=== PATIENT | male | born 1965 | race Caucasian/White ===

== ENCOUNTER 2018-04-28 11:02 | Emergency (ER) | payer BC ==
[2018-04-28] MEDS ORDERED: IPRATROPIUM BROM 0.5MG/2.5ML ONE (11:48)
[2018-04-28] MEDS ORDERED: METHYLPREDNISOLONE 125 MG INJ ONE (11:48)
[2018-04-28] MEDS ORDERED: ALBUTEROL 2.5 MG/3 ML NEB SOL ONE ×2 (11:48→13:14)
[2018-04-28] MEDS ORDERED: NA CHLORIDE 0.9% 1,000 ML ONE (11:49)
[2018-04-28 12:06] LABS: Absolute Lymphocytes (CBC) 1.7 K/uL (0.7-4.9); Absolute Monocytes 0.8 K/uL (0.1-1.3); Absolute Neutrophil 5.9 K/uL (1.8-8.0); Basophils % 0.7 % (0-1.3); Eosinophils % 7.1 % (0-4.4); Hematocrit 47.2 % (39.6-49.0); Lymphocytes % 18.7 % (15.3-44.8); MPV 8.9 fL (7.6-11.3); Monocytes % 8.8 % (3.3-12.3); RBC Red Blood Cell Count 5.21 M/uL (4.33-5.43)
[2018-04-28 12:09] LABS: Protime INR 1.02
--- NOTE | 2018-04-28 12:10 | RAD REPORT ---
EXAM DESCRIPTION: RAD - Chest Single View - 04/28/2018 12:05 pm CLINICAL HISTORY: COUGH Chest pain. COMPARISON: No comparisons FINDINGS: Portable technique limits examination quality. The lungs are grossly clear. The heart is normal in size. No displaced fractures. IMPRESSION: No acute intrathoracic process suspected.
[2018-04-28 12:27] LABS: ALT/SGPT 47 U/L (12-78); AST/SGOT 38 U/L (15-37); Albumin 4.4 g/dL (3.4-5.0); Alkaline Phosphatase 71 U/L (45-117); BUN Blood Urea Nitrogen 15 mg/dL (7-18); Bicarbonate 32 mmol/L (21-32); Bilirubin Direct 0.1 mg/dL (0-0.2); Bilirubin Total 0.5 mg/dL (0.2-1.0); Glucose Level 118 mg/dL (74-106); Lipase 160 U/L (73-393); Magnesium 2.7 mg/dL (1.8-2.4); NT PRO-BNP 28 pg/mL (<125); Potassium 3.4 mmol/L (3.5-5.1); Protein, Total 8.1 g/dL (6.4-8.2); Sodium Level 137 mmol/L (136-145); Troponin (Emerg Dept Use Only) < 0.02 ng/mL (0.0-0.045)
--- NOTE | 2018-04-28 13:05 | EDPHYS ---
Physician Documentation [facility] Name: Gold James Age: 53 yrs Sex: Male : 1965 Arrival Date: 04/28/2018 Time: 11:05 Bed 17 Private MD: out of town, doctor ED Physician Robi Edwards HPI: 04/28 12:59 This 53 yrs old Male presents to ER via Ambulatory with complaints of ruddy Breathing Difficulty. 12:59 The patient has shortness of breath at rest, with light activity. Onset: The ruddy symptoms/episode began/occurred 5 day(s) ago. Duration: The symptoms are continuous, and are steadily getting worse. The patient's shortness of breath has no apparent modifying factors, is aggravated by coughing, is alleviated by inhaler, nebulizer treatment, sitting up. Associated signs and symptoms: The patient has no apparent associated signs or symptoms. Severity of symptoms: At their worst the symptoms were mild in the emergency department the symptoms are unchanged. The patient has not experienced similar symptoms in the past. Historical: - Allergies: 11:15 No Known Allergies; aj - Home Meds: 11:15 ProAir HFA 90 mcg/actuation inhalation HFAA 1 puff every 4 hours [Active]; azithromycin aj 1 gram Oral pack 1 packet [Active]; Hydrochlorothiazide Oral [Active]; - PMHx: 11:15 Hypertension; aj - PSHx: 11:15 cataract; Hernia repair; aj - Immunization history:: Adult Immunizations up to date. - Social history:: Smoking status: Patient/guardian denies using tobacco. - Ebola Screening: : Patient negative for fever greater than or equal to 101.5 degrees Fahrenheit, and additional compatible Ebola Virus Disease symptoms Patient denies exposure to infectious person Patient denies travel to an Ebola-affected area in the 21 days before illness onset No symptoms or risks identified at this time. ROS: 13:00 Constitutional: Negative for fever, chills, and weight loss, Eyes: Negative for injury, ruddy pain, redness, and discharge, ENT: Negative for injury, pain, and discharge, Neck: Negative for injury, pain, and swelling, Cardiovascular: Negative for chest pain, palpitations, and edema, Abdomen/GI: Negative for abdominal pain, nausea, vomiting, diarrhea, and constipation, Back: Negative for injury and pain, : Negative for injury, bleeding, discharge, and swelling, MS/Extremity: Negative for injury and deformity, Skin: Negative for injury, rash, and discoloration, Neuro: Negative for headache, weakness, numbness, tingling, and seizure, Psych: Negative for depression, anxiety, suicide ideation, homicidal ideation, and hallucinations, Allergy/Immunology: Negative for hives, rash, and allergies, Endocrine: Negative for neck swelling, polydipsia, polyuria, polyphagia, and marked weight changes, Hematologic/Lymphatic: Negative for swollen nodes, abnormal bleeding, and unusual bruising. 13:00 Respiratory: Positive for cough, shortness of breath, wheezing, expiratory. Exam: 13:00 Constitutional: This is a well developed, well nourished patient who is awake, alert, ruddy and in no acute distress. Head/Face: Normocephalic, atraumatic. Eyes: Pupils equal round and reactive to light, extra-ocular motions intact. Lids and lashes normal. Conjunctiva and sclera are non-icteric and not injected. Cornea within normal limits. Periorbital areas with no swelling, redness, or edema. ENT: Nares patent. No nasal discharge, no septal abnormalities noted. Tympanic membranes are normal and external auditory canals are clear. Oropharynx with no redness, swelling, or masses, exudates, or evidence of obstruction, uvula midline. Mucous membranes moist. Neck: Trachea midline, no thyromegaly or masses palpated, and no cervical lymphadenopathy. Supple, full range of motion without nuchal rigidity, or vertebral point tenderness. No Meningismus. Chest/axilla: Normal chest wall appearance and motion. Nontender with no deformity. No lesions are appreciated. Cardiovascular: Regular rate and rhythm with a normal S1 and S2. No gallops, murmurs, or rubs. Normal PMI, no JVD. No pulse deficits. Abdomen/GI: Soft, non-tender, with normal bowel sounds. No distension or tympany. No guarding or rebound. No evidence of tenderness throughout. Back: No spinal tenderness. No costovertebral tenderness. Full range of motion. Male : Normal genitalia with no discharge or lesions. Skin: Warm, dry with normal turgor. Normal color with no rashes, no lesions, and no evidence of cellulitis. MS/ Extremity: Pulses equal, no cyanosis. Neurovascular intact. Full, normal range of motion. Neuro: Awake and alert, GCS 15, oriented to person, place, time, and situation. Cranial nerves II-XII grossly intact. Motor strength 5/5 in all extremities. Sensory grossly intact. Cerebellar exam normal. Normal gait. Psych: Awake, alert, with orientation to person, place and time. Behavior, mood, and affect are within normal limits. 13:00 Respiratory: the patient does not display signs of respiratory distress, Respirations: normal, Breath sounds: rhonchi, wheezing: expiratory Respiratory rate: 20 13:09 Musculoskeletal/extremity: DVT Exam: No signs of deep vein thrombosis. no pain, no ruddy swelling, no tenderness, negative Homans' sign noted on exam, no appreciated bluish discoloration, no erythema, no increased warmth, no trauma, no stasis, no hc state. Vital Signs: 11:15 BP 165 / 107; Pulse 73; Resp 22; Temp 98.2; Pulse Ox 93% on R/A; Weight 90.26 kg; aj Height 5 ft. 8 in. (172.72 cm); 12:22 BP 179 / 98; Pulse 65; Resp 21; Pulse Ox 100% on R/A; Pain 0/10; em 13:30 BP 158 / 98; Pulse 81; Resp 16; Pulse Ox 98% on R/A; em 11:15 Body Mass Index 30.26 (90.26 kg, 172.72 cm) aj MDM: 11:17 Patient medically screened. [facility] 13:02 Data reviewed: vital signs, nurses notes, lab test result(s), radiologic studies. [facility] 04/28 11:35 Order name: Basic Metabolic Panel; Complete Time: 12:55 [facility] 04/28 11:35 Order name: CBC with Diff; Complete Time: 12:55 [facility] 04/28 11:35 Order name: LFT's; Complete Time: 12:55 [facility] 04/28 11:35 Order name: Magnesium; Complete Time: 12:55 [facility] 04/28 11:35 Order name: NT PRO-BNP; Complete Time: 12:55 [facility] 04/28 11:35 Order name: PT-INR; Complete Time: 12:55 [facility] 04/28 11:35 Order name: Troponin (emerg Dept Use Only); Complete Time: 12:55 [facility] 04/28 11:35 Order name: XRAY Chest (1 view); Complete Time: 12:55 [facility] 04/28 11:35 Order name: Blood Culture Adult (2) [facility] 04/28 11:35 Order name: Lipase; Complete Time: 12:55 [facility] 04/28 11:35 Order name: Cardiac monitoring; Complete Time: 12:30 [facility] 04/28 11:35 Order name: EKG - Nurse/Tech; Complete Time: 12:30 [facility] 04/28 11:35 Order name: IV Saline Lock; Complete Time: 12:30 [facility] 04/28 11:35 Order name: Labs collected and sent; Complete Time: 12:30 [facility] 04/28 11:35 Order name: O2 Per Protocol; Complete Time: 12:30 [facility] 04/28 11:35 Order name: O2 Sat Monitoring; Complete Time: 12:30 [facility] 04/28 11:35 Order name: Urine Dipstick-Ancillary (obtain specimen); Complete Time: 11:36 [facility] Administered Medications: 11:48 Drug: Albuterol - atroVENT (3:1) (2.5 mg - 0.5 mg) 3 ml Route: Nebulizer; em 13:00 Follow up: Response: No adverse reaction; Wheezing unchanged em 11:55 Drug: NS 0.9% 1000 ml Route: IV; Rate: 125 ml/hr; Site: right antecubital; ss 13:49 Follow up: IV Status: Completed infusion; IV Intake: 1000ml em 11:55 Drug: SOLU-Medrol 125 mg Route: IVP; Site: right antecubital; ss 12:30 Follow up: Response: No adverse reaction em 13:01 Not Given (Physician Discretion): NS 0.9% 1000 ml IV at 1 bolus Per protocol; 1000 mL em bolus 13:12 Drug: predniSONE 40 mg Route: PO; em 13:49 Follow up: Response: No adverse reaction em 13:12 Drug: Albuterol 5 mg Route: Inhalation; em 13:30 Drug: LevaQUIN 750 mg Route: PO; em 13:49 Follow up: Response: No adverse reaction em Disposition: 04/28/18 13:04 Discharged to Home. Impression: Bronchitis, not specified as acute or chronic, Dyspnea. - Condition is Stable. - Discharge Instructions: Acute Bronchitis, Adult, Hypertension, Upper Respiratory Infection, Adult, Upper Respiratory Infection, Adult, [id number]. - Prescriptions for Levaquin 500 mg Oral Tablet - take 1 tablet by ORAL route once daily for 7 days; 7 tablet. Albuterol Sulfate 2.5 mg /3 mL (0.083 %) Inhalation Solution for Nebulization - inhale 1 unit by NEBULIZATION route every 8 hours As needed; 1 box. Prednisone 20 mg Oral Tablet - take 2 tablet by ORAL route once daily for 5 days; 10 tablet. Albuterol Sulfate 90 mcg/actuation - inhale 1-2 puff by INHALATION route every 4-6 hours; 1 Inhaler. - Medication Reconciliation Form, Thank You Letter, Antibiotic Education, Prescription Opioid Use form. - Follow up: Private Physician; When: 2 - 3 days; Reason: Recheck today's complaints, Continuance of care, Re-evaluation by your physician. Follow up: Paras Jones MD; When: 2 - 3 days; Reason: Recheck today's complaints, Continuance of care, Re-evaluation by your physician. - Problem is new. - Symptoms have improved. Signatures: Dispatcher [employer] Judi Kaye RN RN Robi Scott MD MD cha Munoz, Edgar, [employer]IPAL [employer] Génesis Garrido RN RN ss Corrections: (The following items were deleted from the chart) 13:07 13:04 04/28/2018 13:04 Discharged to Home. Impression: Bronchitis, not specified as ruddy acute or chronic; Dyspnea. Condition is Stable. Forms are Medication Reconciliation Form, Thank You Letter, Antibiotic Education, Prescription Opioid Use. Follow up: Private Physician; When: 2 - 3 days; Reason: Recheck today's complaints, Continuance of care, Re-evaluation by your physician. Problem is new. Symptoms have improved. ruddy 13:51 13:07 04/28/2018 13:04 Discharged to Home. Impression: Bronchitis, not specified as em acute or chronic; Dyspnea. Condition is Stable. Discharge Instructions: Acute Bronchitis, Adult, Hypertension, Upper Respiratory Infection, Adult, Upper Respiratory Infection, Adult, [id number]. Prescriptions for Levaquin 500 mg Oral Tablet - take 1 tablet by ORAL route once daily for 7 days; 7 tablet, Albuterol Sulfate 2.5 mg /3 mL (0.083 %) Inhalation Solution for Nebulization - inhale 1 unit by NEBULIZATION route every 8 hours As needed; 1 box, Prednisone 20 mg Oral Tablet - take 2 tablet by ORAL route once daily for 5 days; 10 tablet, Albuterol Sulfate 90 mcg/actuation - inhale 1-2 puff by INHALATION route every 4-6 hours; 1 Inhaler. and Forms are Medication Reconciliation Form, Thank You Letter, Antibiotic Education, Prescription Opioid Use. Follow up: Private Physician; When: 2 - 3 days; Reason: Recheck today's complaints, Continuance of care, Re-evaluation by your physician. Follow up: Paras Jones; When: 2 - 3 days; Reason: Recheck today's complaints, Continuance of care, Re-evaluation by your physician. Problem is new. Symptoms have improved. ruddy
--- NOTE | 2018-04-28 13:05 | ER ---
Nurse's Notes [facility] Name: Gold James Age: 53 yrs Sex: Male : 1965 Arrival Date: 04/28/2018 Time: 11:05 Bed 17 Private MD: out of town, doctor Diagnosis: Bronchitis, not specified as acute or chronic;Dyspnea Presentation: 04/28 11:12 Presenting complaint: Patient states: SOB and difficulty breathing for 4 days. DX with aj Bronchitis and given steroid shot and Z pack. Transition of care: patient was not received from another setting of care. Onset of symptoms was April 24, 2018. Risk Assessment: Do you want to hurt yourself or someone else? Patient reports no desire to harm self or others. Initial Sepsis Screen: Does the patient meet any 2 criteria? No. Patient's initial sepsis screen is negative. Does the patient have a suspected source of infection? Yes:. Care prior to arrival: None. 11:12 Method Of Arrival: Ambulatory aj 11:12 Acuity: LEA 3 aj Triage Assessment: 11:15 General: Appears in no apparent distress. comfortable, Behavior is calm, cooperative, aj appropriate for age. Pain: Denies pain. Neuro: Level of Consciousness is awake, alert, obeys commands, Oriented to person, place, time, situation, Appropriate for age. Respiratory: Reports shortness of breath cough that is Airway is patent Respiratory effort is even, unlabored, Respiratory pattern is regular, symmetrical, Onset: The symptoms/episode began/occurred gradually, the patient has mild shortness of breath. Derm: Skin is intact, is healthy with good turgor, Skin is pink, warm \T\ dry. normal. Historical: - Allergies: 11:15 No Known Allergies; aj - Home Meds: 11:15 ProAir HFA 90 mcg/actuation inhalation HFAA 1 puff every 4 hours [Active]; azithromycin aj 1 gram Oral pack 1 packet [Active]; Hydrochlorothiazide Oral [Active]; - PMHx: 11:15 Hypertension; aj - PSHx: 11:15 cataract; Hernia repair; aj - Immunization history:: Adult Immunizations up to date. - Social history:: Smoking status: Patient/guardian denies using tobacco. - Ebola Screening: : Patient negative for fever greater than or equal to 101.5 degrees Fahrenheit, and additional compatible Ebola Virus Disease symptoms Patient denies exposure to infectious person Patient denies travel to an Ebola-affected area in the 21 days before illness onset No symptoms or risks identified at this time. Screenin:35 Abuse screen: Denies threats or abuse. Nutritional screening: No deficits noted. em Tuberculosis screening: No symptoms or risk factors identified. Fall Risk None identified. Assessment: 11:35 General: Appears in no apparent distress. comfortable, Behavior is calm, cooperative, em Denies fever. Pain: Denies pain. Neuro: Level of Consciousness is awake, alert, obeys commands, Oriented to person, place, time, situation. Cardiovascular: Patient's skin is warm and dry. Rhythm is sinus rhythm. Respiratory: Reports cough that is productive, Airway is patent Respiratory effort is even, unlabored, Respiratory pattern is regular, symmetrical, Breath sounds with wheezes in left posterior lower lobe and right posterior lower lobe Onset: The symptoms/episode began/occurred 9 days ago. GI: Patient currently denies nausea, vomiting. Derm: Skin is intact, is healthy with good turgor, Skin is pink, warm \T\ dry. Musculoskeletal: Range of motion: intact in all extremities. 12:30 Reassessment: Patient appears in no apparent distress at this time. Patient and/or em family updated on plan of care and expected duration. Pain level reassessed. Patient is alert, oriented x 3, equal unlabored respirations, skin warm/dry/pink. Patient states feeling better. 13:26 Reassessment: pending completion of IV fluids and breathing treatments. em 13:50 Reassessment: Patient appears in no apparent distress at this time. Patient and/or em family updated on plan of care and expected duration. Pain level reassessed. Patient is alert, oriented x 3, equal unlabored respirations, skin warm/dry/pink. Patient states feeling better. Patient states symptoms have improved. Vital Signs: 11:15 BP 165 / 107; Pulse 73; Resp 22; Temp 98.2; Pulse Ox 93% on R/A; Weight 90.26 kg; aj Height 5 ft. 8 in. (172.72 cm); 12:22 BP 179 / 98; Pulse 65; Resp 21; Pulse Ox 100% on R/A; Pain 0/10; em 13:30 BP 158 / 98; Pulse 81; Resp 16; Pulse Ox 98% on R/A; em 11:15 Body Mass Index 30.26 (90.26 kg, 172.72 cm) aj ED Course: 11:05 Patient arrived in ED. sb2 11:05 out of town, doctor is Private Physician. sb2 11:13 Triage completed. aj 11:15 Arm band placed on left wrist. Patient placed in an exam room. aj 11:17 Robi Edwards MD is Attending Physician. ruddy 11:33 Johan Beltre LVN is Primary Nurse. em 11:35 Patient has correct armband on for positive identification. Placed in gown. Bed in low em position. Call light in reach. monitoring specialist on. Pulse ox on. NIBP on. 11:50 Inserted saline lock: 20 gauge in right antecubital area, using aseptic technique. em Blood collected. 11:50 Initial lab(s) drawn, by me, sent to lab. First set of blood cultures drawn by me, em Urine collected: clean catch specimen, clear. 12:05 X-ray completed. Portable x-ray completed in exam room. Patient tolerated procedure mh1 well. 12:06 XRAY Chest (1 view) In Process Unspecified. EDMS 13:07 Paras Jones MD is Referral Physician. ruddy 13:26 No provider procedures requiring assistance completed. em 13:51 IV discontinued, intact, bleeding controlled, No redness/swelling at site. Pressure em dressing applied. Administered Medications: 11:48 Drug: Albuterol - atroVENT (3:1) (2.5 mg - 0.5 mg) 3 ml Route: Nebulizer; em 13:00 Follow up: Response: No adverse reaction; Wheezing unchanged em 11:55 Drug: NS 0.9% 1000 ml Route: IV; Rate: 125 ml/hr; Site: right antecubital; ss 13:49 Follow up: IV Status: Completed infusion; IV Intake: 1000ml em 11:55 Drug: SOLU-Medrol 125 mg Route: IVP; Site: right antecubital; ss 12:30 Follow up: Response: No adverse reaction em 13:01 Not Given (Physician Discretion): NS 0.9% 1000 ml IV at 1 bolus Per protocol; 1000 mL em bolus 13:12 Drug: predniSONE 40 mg Route: PO; em 13:49 Follow up: Response: No adverse reaction em 13:12 Drug: Albuterol 5 mg Route: Inhalation; em 13:30 Drug: LevaQUIN 750 mg Route: PO; em 13:49 Follow up: Response: No adverse reaction em Intake: 13:49 IV: 1000ml; Total: 1000ml. em Outcome: 13:04 Discharge ordered by . ruddy 13:51 Discharged to em 13:51 Condition: good 13:51 Discharge instructions given to patient, Instructed on discharge instructions, follow up and referral plans. medication usage, Demonstrated understanding of instructions, follow-up care, medications, Prescriptions given X 5 13:51 Patient left the ED. em Signatures: Dispatcher [employer] Judi Kaye, RN RN Robi Scott MD MD cha Harvey, Martha 1 Johan Beltre, PUPPET MASTER PUPPET MASTER Génesis Garrido RN RN Sonia Bloom sb2
[2018-04-28] MEDS ORDERED: predniSONE 20 MG TAB ONE (13:14)
[2018-04-28] MEDS ORDERED: levoFLOXacin 750 MG TAB ONE (13:24)
== END 2018-04-28 13:51 | disposition home or self-care (01) ==
LOC: ER 11:02
DX: J40 Bronchitis, not specified as acute or chronic (principal); R06.00 Dyspnea, unspecified; I10 Essential (primary) hypertension; Z79.899 Other long term (current) drug therapy
CPT/HCPCS: 36415; 71045; 80048; 80076; 83690; 83735; 83880; 84484; 85025; 85610; 87040; 94640; 96361; 96374; 99285; J2930; J7030; J7512